=== PATIENT | female | born 1960 | race Caucasian/White ===

== ENCOUNTER → 2024-07-04 14:53 | Outpatient (REF) | payer OTHER, SELFPAY | LOC: WDC 14:53 | PROVIDERS: ATTENDING PHYSICIAN Obstetrics & Gynecology Gynecology; FAMILY PHYSICIAN Family Medicine | DX: Z12.31 Encounter for screening mammogram for malignant neoplasm of breast (principal) | CPT/HCPCS: 77063; 77067 ==

== ENCOUNTER → 2025-07-29 13:35 | Outpatient (REF) | payer OTHER, SELFPAY | LOC: WDC 13:35 | PROVIDERS: ATTENDING PHYSICIAN Obstetrics & Gynecology Gynecology; FAMILY PHYSICIAN Family Medicine | DX: Z12.31 Encounter for screening mammogram for malignant neoplasm of breast (principal) | CPT/HCPCS: 77063; 77067 ==